=== PATIENT | male | born 1945 | race Caucasian/White ===

== ENCOUNTER 2018-01-16 18:32 | Observation (INO) ==
--- NOTE | 2018-01-16 18:51 | Emergency Department Note ---
Disposition Clinical Impression: Chest pain Qualifiers: Chest pain type: unspecified Qualified Code(s): R07.9 - Chest pain, unspecified Disposition: Admitted As Inpatient Condition: Good [facility] Care Provider[facility] - Time of Disposition: 21:25 General Adult HPI - General Chief complaint: ED Chest Pain Stated complaint: chest pain Time Seen by Provider: 01/16/18 18:33 Source: patient Nursing Notes Reviewed: Yes Vital Signs Reviewed: Yes - History of Present Illness HPI Narrative: Male patient presenting to the emergency department complaining of left-sided chest pain. States that it is sharp in nature radiates to his back. Denies any shortness of breath. Denies any nausea vomiting or diarrhea. Has never had a history of an [place] previously. He does have a history however of diabetes as well as hyperlipidemia and he was a previous smoker. Patient is resting comfortably he does have an episode of this pain while he is in the room. This is bleeding. This is happened several times throughout the day today he denies any provoking or alleviating factors. - Related Data Home Medications Medication Instructions Recorded Confirmed Albuterol Sulfate [Albuterol 2 puff PO Q4H PRN 07/10/15 07/10/15 Inhaler] Alfuzosin HCl [Uroxatral] 10 mg PO DAILY 07/10/15 07/10/15 Aspirin Enteric Coated [Aspirin EC] 81 mg PO DAILY 07/10/15 07/10/15 Budesonide/Formoterol 160/4.5 2 puff IH BIDR 07/10/15 07/10/15 [Symbicort 160/4.5] Cetirizine HCl [Zyrtec] 10 mg PO DAILY 07/10/15 07/10/15 Cholecalciferol (D-3) [Vitamin D] 1,000 unit PO DAILY 07/10/15 07/10/15 Fluticasone Propionate Nasal 2 spr NS DAILY PRN 07/10/15 07/10/15 [Flonase] Gabapentin [Neurontin] 600 mg PO TID 07/10/15 07/10/15 Hydralazine HCl 50 mg PO TID 07/10/15 07/10/15 Insulin ASPART [NovoLOG] 10 unit SQ QAM 07/10/15 07/10/15 Insulin ASPART [Novolog] 16 unit SQ BID 07/10/15 07/10/15 Insulin Glargine,Hum.rec.anlog 50 unit SQ HS 07/10/15 07/10/15 [Lantus Solostar] Latanoprost [Xalatan] 1 drop BOTH EYES QPM 07/10/15 07/10/15 Levothyroxine [Synthroid] 150 mcg PO DAILY 07/10/15 07/10/15 Losartan Potassium [Cozaar] 50 mg PO BID 07/10/15 07/10/15 Melatonin 3 mg PO HS 07/10/15 07/10/15 Metformin HCl [Metformin HCl ER] 2,000 mg PO QPM 07/10/15 07/10/15 Methocarbamol [Robaxin-750] 750 mg PO TID 07/10/15 07/10/15 Montelukast [Singulair] 10 mg PO 07/10/15 07/10/15 Morphine Immed Rel [Morphine 15 mg PO TID 07/10/15 07/10/15 Sulfate] Naproxen [Naprosyn] 500 mg PO BID 07/10/15 07/10/15 Omeprazole [PriLOSEC] 20 mg PO DAILY 07/10/15 07/10/15 Potassium Chloride [K-Tab ER] 20 meq PO BID 07/10/15 07/10/15 Ropinirole HCl [Requip] 3 mg PO 07/10/15 07/10/15 Sertraline [Zoloft] 200 mg PO DAILY 07/10/15 07/10/15 Simvastatin [Zocor] 20 mg PO 07/10/15 07/10/15 hydroCHLOROthiazide 12.5 mg PO DAILY 07/10/15 07/10/15 [Hydrochlorothiazide] risperiDONE [Risperidone] 0.5 mg PO 07/10/15 07/10/15 risperiDONE [Risperidone] 1 mg PO QA 07/10/15 07/10/15 Allergies Allergy/AdvReac Type Severity Reaction Status Date / Time citalopram [From Celexa] AdvReac aggitated Verified 07/10/15 08:14 Donepezil [From Aricept] AdvReac unknown Verified 07/10/15 08:14 per patient All systems ED: reviewed and negative except as stated. Review of Systems: As Per HPI Constitutional: Denies: fever ENT ED: Denies: congestion Cardiovascular: Reports: chest pain. Denies: palpitations, syncope Respiratory: Denies: cough, dyspnea Gastrointestinal: Denies: abdominal pain, nausea, vomiting, diarrhea, hematemesis, melena, hematochezia Genitourinary: Denies: urgency, dysuria, frequency Musculoskeletal: Denies: back pain Integumentary: Denies: rash Neurological: Denies: headache, weakness, numbness Past Medical History - Past Medical History Attestation: Yes The following information was validated with the patient. Source: patient Medical history: Reports: asthma, diabetes, hyperlipidemia, hypertension, thyroid disease Surgical history: Reports: orthopedic, other Psychiatric history: Reports: depression - Social History Smoking Status: Former smoker Alcohol use: Reports: none Physical Exam - General Limitations: no limitations General appearance: obese - Head Head exam: atraumatic, normocephalic, normal inspection - Eye Eye exam: Present: normal appearance - ENT ENT exam: normal exam, normal oropharynx, mucous membranes moist - Neck Neck exam: Present: normal inspection, full ROM, trachea midline - Chest Chest inspection: Present: normal inspection, symmetric chest wall rise. Absent: tenderness - Respiratory Respiratory exam: Present: normal lung sounds bilaterally. Absent: respiratory distress, accessory muscle use - Cardiovascular Cardiovascular exam: Present: regular rate, normal rhythm, normal heart sounds - Abdominal Exam Abdominal exam: Present: soft, Non-Tender. Absent: tenderness, distention, g uarding, rebound, rigidity, organomegaly - Extremities Exam Extremities exam: Present: normal inspection, full ROM, normal capillary refill. Absent: tenderness, pedal edema - Back Exam Back exam: Present: normal inspection, full ROM. Absent: tenderness - Neurological Exam Neurological exam: Present: alert, oriented X3 - Psychiatric Psychiatric exam: Present: normal affect, normal mood - Skin Skin exam: Present: warm, dry, intact, normal color Course Course Narrative: Male patient with a significant past medical history of being a smoker as well as diabetes hyperlipidemia hypercholesterolemia presents with left-sided chest pain. He is an obese male. Patient has poor R-wave progression on his EKG. He also has a first-degree AV block. Lab workup is unremarkable a is here however he does have chest pain while he is here. We had a negative troponin initially however we will admit patient to hospital for further ACS rule out. We did provide him with aspirin while he is here. Vital Signs Temperature 98.5 F 01/16/18 18:46 Pulse Rate 60 01/16/18 18:46 Respiratory Rate 16 01/16/18 18:46 Blood Pressure 154/59 01/16/18 18:46 O2 Sat by Pulse Oximetry 95 01/16/18 18:46 Temperature 98.5 F 01/16/18 18:46 Pulse Rate 60 01/16/18 18:46 Respiratory Rate 16 01/16/18 18:46 Blood Pressure 154/59 01/16/18 18:46 O2 Sat by Pulse Oximetry 95 01/16/18 18:46 Oxygen Delivery Oxygen Delivery Room Air Medical Decision Making - Medical Records Medical records reviewed: Yes I reviewed the patient's medical records. - Lab Data Lab results reviewed: Yes I reviewed the patient's lab results. Result diagrams: 01/16/18 19:40 01/16/18 19:40 Lab Results 01/16/18 01/16/18 01/16/18 Range/Units 19:40 19:40 19:40 WBC 7.0 (4.3-11.1) K/mcL RBC 3.93 L (4.19-5.50) M/mcL Hgb 10.6 L (12.9-16.9) g/dL Hct 32.6 L (37.5-50.1) % MCV 83.0 (83.0-100.0) fL MCH 27.0 L (28.0-33.3) pg MCHC 32.5 (31.6-35.5) g/dL RDW 14.0 (11.5-14.5) % Plt Count 168 (140-400) K/mcL MPV 10.8 (9.4-12.4) fL Immature Gran % 0.6 (0-4) % Seg Neutrophils % 68.0 % Lymphocytes % 18.4 % Monocytes % 7.1 % Eosinophils % 5.3 % Basophils % 0.6 % Neutrophils # 4.7 (1.6-8.9) K/mcL Lymphocytes # 1.3 (0.6-4.6) K/mcL Monocytes # 0.5 (0.0-1.3) K/mcL Eosinophils # 0.4 (0.0-0.6) K/mcL Basophils # 0.0 (0.0-0.2) K/mcL PT 11.4 (9.4-12.1) Seconds INR 1.0 APTT 33.7 (26.0-36.0) Seconds Sodium (136-145) mEq/L Potassium (3.5-5.1) mEq/L Chloride (98-107) mEq/L Carbon Dioxide (23-29) mEq/L BUN (8-23) mg/dL Creatinine (0.70-1.30) mg/dL Est GFR ( Amer) (> 60) Est GFR (Non-Af Amer) (> 60) BUN/Creatinine Ratio (6-26) Glucose (70-105) mg/dL Calculated Osmolality (280-300) Calcium (8.6-10.3) mg/dL Troponin I (< 0.04) ng/mL B-Natriuretic Peptide 98 (Less than 100) pg/mL 01/16/18 Range/Units 19:40 WBC (4.3-11.1) K/mcL RBC (4.19-5.50) M/mcL Hgb (12.9-16.9) g/dL Hct (37.5-50.1) % MCV (83.0-100.0) fL MCH (28.0-33.3) pg MCHC (31.6-35.5) g/dL RDW (11.5-14.5) % Plt Count (140-400) K/mcL MPV (9.4-12.4) fL Immature Gran % (0-4) % Seg Neutrophils % % Lymphocytes % % Monocytes % % Eosinophils % % Basophils % % Neutrophils # (1.6-8.9) K/mcL Lymphocytes # (0.6-4.6) K/mcL Monocytes # (0.0-1.3) K/mcL Eosinophils # (0.0-0.6) K/mcL Basophils # (0.0-0.2) K/mcL PT (9.4-12.1) Seconds INR APTT (26.0-36.0) Seconds Sodium 138 (136-145) mEq/L Potassium 3.5 (3.5-5.1) mEq/L Chloride 103 (98-107) mEq/L Carbon Dioxide 26 (23-29) mEq/L BUN 17 (8-23) mg/dL Creatinine 0.93 (0.70-1.30) mg/dL Est GFR ( Amer) > 60 (> 60) Est GFR (Non-Af Amer) > 60 (> 60) BUN/Creatinine Ratio 18 (6-26) Glucose 253 H (70-105) mg/dL Calculated Osmolality 296 (280-300) Calcium 9.0 (8.6-10.3) mg/dL Troponin I < 0.03 (< 0.04) ng/mL B-Natriuretic Peptide (Less than 100) pg/mL - Radiology Data Radiology results reviewed: Yes I reviewed the patient's radiology results. Chest X-Ray 01/16/18 19:03 IMPRESSION: The lungs are without acute focal process. There is no effusion or pneumothorax. The cardiomediastinal silhouette is stable. The osseous structures are stable. IMPRESSION: No acute process. D/ / García Arellano MD / García Arellano MD Interpreting Provider: García Arellano MD - EKG Data EKG #1 EKG attestation: Yes I reviewed and interpreted this EKG. EKG results narrative: Sinus bradycardia rhythm at a rate of 59. IL interval is 287. QRS duration is 104. QT is 435. QTC is 431. Patient does have a first-degree AV block. Poor R-wave progression. No signs of acute ischemia.
[2018-01-16] MEDS ORDERED: Aspirin 81 MG TAB.CHEW PO ONE (19:03)
[2018-01-16 20:10] LABS: Basophils % 0.6 %; Eosinophils # 0.4 K/mcL (0.0-0.6); Eosinophils % 5.3 %; Hematocrit 32.6 % (37.5-50.1); Hemoglobin 10.6 g/dL (12.9-16.9); Immature Granulocytes % 0.6 % (0-4); Lymphocytes # 1.3 K/mcL (0.6-4.6); Lymphocytes % 18.4 %; Mean Corpuscular HGB Conc 32.5 g/dL (31.6-35.5); Mean Platelet Volume 10.8 fL (9.4-12.4); Monocytes # 0.5 K/mcL (0.0-1.3); Monocytes % 7.1 %; Neutrophils # 4.7 K/mcL (1.6-8.9); Platelet Count 168 K/mcL (140-400); Red Blood Count 3.93 M/mcL (4.19-5.50)
[2018-01-16 20:23] LABS: Prothrombin Time 11.4 Seconds (9.4-12.1)
[2018-01-16 20:25] LABS: Activated Partial Thrombo Time 33.7 Seconds (26.0-36.0)
[2018-01-16 20:31] LABS: BUN/Creatinine Ratio 18 (6-26); Blood Urea Nitrogen 17 mg/dL (8-23); Carbon Dioxide 26 mEq/L (23-29); Chloride 103 mEq/L (98-107); Glucose 253 mg/dL (70-105); Osmolality,Calculated 296 (280-300); Potassium 3.5 mEq/L (3.5-5.1); Sodium 138 mEq/L (136-145); Troponin I < 0.03 ng/mL (< 0.04); eGFR For Non-African Americans > 60 (> 60)
--- NOTE | 2018-01-16 21:06 | Emergency Department Note ---
Disposition Clinical Impression: Chest pain Qualifiers: Chest pain type: unspecified Qualified Code(s): R07.9 - Chest pain, unspecified Disposition: Admitted As Inpatient [facility]: [facility] [Primary Care Provider[facility] - General Adult [facility] - General Chief complaint: ED Chest Pain Stated complaint: chest pain Time Seen by Provider: 01/16/18 18:33 Source: patient Limitations: no limitations - History of Present Illness Pain Scale: 0 - Related Data Home Medications Medication Instructions Recorded Confirmed Albuterol Sulfate [Albuterol 2 puff PO Q4H PRN 07/10/15 07/10/15 Inhaler] Alfuzosin HCl [Uroxatral] 10 mg PO DAILY 07/10/15 07/10/15 Aspirin Enteric Coated [Aspirin EC] 81 mg PO DAILY 07/10/15 07/10/15 Budesonide/Formoterol 160/4.5 2 puff IH BIDR 07/10/15 07/10/15 [Symbicort 160/4.5] Cetirizine HCl [Zyrtec] 10 mg PO DAILY 07/10/15 07/10/15 Cholecalciferol (D-3) [Vitamin D] 1,000 unit PO DAILY 07/10/15 07/10/15 Fluticasone Propionate Nasal 2 spr NS DAILY PRN 07/10/15 07/10/15 [Flonase] Gabapentin [Neurontin] 600 mg PO TID 07/10/15 07/10/15 Hydralazine HCl 50 mg PO TID 07/10/15 07/10/15 Insulin ASPART [NovoLOG] 10 unit SQ QAM 07/10/15 07/10/15 Insulin ASPART [Novolog] 16 unit SQ BID 07/10/15 07/10/15 Insulin Glargine,Hum.rec.anlog 50 unit SQ HS 07/10/15 07/10/15 [Lantus Solostar] Latanoprost [Xalatan] 1 drop BOTH EYES QPM 07/10/15 07/10/15 Levothyroxine [Synthroid] 150 mcg PO DAILY 07/10/15 07/10/15 Losartan Potassium [Cozaar] 50 mg PO BID 07/10/15 07/10/15 Melatonin 3 mg PO HS 07/10/15 07/10/15 Metformin HCl [Metformin HCl ER] 2,000 mg PO QPM 07/10/15 07/10/15 Methocarbamol [Robaxin-750] 750 mg PO TID 07/10/15 07/10/15 Montelukast [Singulair] 10 mg PO HS 07/10/15 07/10/15 Morphine Immed Rel [Morphine 15 mg PO TID 07/10/15 07/10/15 Sulfate] Naproxen [Naprosyn] 500 mg PO BID 07/10/15 07/10/15 Omeprazole [PriLOSEC] 20 mg PO DAILY 07/10/15 07/10/15 Potassium Chloride [K-Tab ER] 20 meq PO BID 07/10/15 07/10/15 Ropinirole HCl [Requip] 3 mg PO HS 07/10/15 07/10/15 Sertraline [Zoloft] 200 mg PO DAILY 07/10/15 07/10/15 Simvastatin [Zocor] 20 mg PO HS 07/10/15 07/10/15 hydroCHLOROthiazide 12.5 mg PO DAILY 07/10/15 07/10/15 [Hydrochlorothiazide] risperiDONE [Risperidone] 0.5 mg PO HS 07/10/15 07/10/15 risperiDONE [Risperidone] 1 mg PO QA 07/10/15 07/10/15 Allergies Allergy/AdvReac Type Severity Reaction Status Date / Time citalopram [From Celexa] AdvReac aggitated Verified 07/10/15 08:14 Donepezil [From Aricept] AdvReac unknown Verified 07/10/15 08:14 per patient Past Medical History - Past Medical History Medical history: Reports: asthma, diabetes, hyperlipidemia, hypertension, thyroid disease Surgical history: Reports: orthopedic, other Psychiatric history: Reports: depression - Social History Smoking Status: Former smoker Smokeless Tobacco Status: No Alcohol use: Reports: none Physical Exam - General Limitations: no limitations General appearance: alert, in no apparent distress Course Vital Signs Temperature 98.5 F 01/16/18 18:46 Pulse Rate 60 01/16/18 18:46 Respiratory Rate 16 01/16/18 18:46 Blood Pressure 154/59 01/16/18 18:46 O2 Sat by Pulse Oximetry 95 01/16/18 18:46 Temperature 98.5 F 01/16/18 18:46 Pulse Rate 60 01/16/18 18:46 Respiratory Rate 16 01/16/18 18:46 Blood Pressure 154/59 01/16/18 18:46 O2 Sat by Pulse Oximetry 95 01/16/18 18:46 Oxygen Delivery Oxygen Delivery Room Air Medical Decision Making - Lab Data Result diagrams: 01/16/18 19:40 01/16/18 19:40 Lab Results 01/16/18 01/16/18 01/16/18 Range/Units 19:40 19:40 19:40 WBC 7.0 (4.3-11.1) K/mcL RBC 3.93 L (4.19-5.50) M/mcL Hgb 10.6 L (12.9-16.9) g/dL Hct 32.6 L (37.5-50.1) % MCV 83.0 (83.0-100.0) fL MCH 27.0 L (28.0-33.3) pg MCHC 32.5 (31.6-35.5) g/dL RDW 14.0 (11.5-14.5) % Plt Count 168 (140-400) K/mcL MPV 10.8 (9.4-12.4) fL Immature Gran % 0.6 (0-4) % Seg Neutrophils % 68.0 % Lymphocytes % 18.4 % Monocytes % 7.1 % Eosinophils % 5.3 % Basophils % 0.6 % Neutrophils # 4.7 (1.6-8.9) K/mcL Lymphocytes # 1.3 (0.6-4.6) K/mcL Monocytes # 0.5 (0.0-1.3) K/mcL Eosinophils # 0.4 (0.0-0.6) K/mcL Basophils # 0.0 (0.0-0.2) K/mcL PT 11.4 (9.4-12.1) Seconds INR 1.0 APTT 33.7 (26.0-36.0) Seconds Sodium (136-145) mEq/L Potassium (3.5-5.1) mEq/L Chloride (98-107) mEq/L Carbon Dioxide (23-29) mEq/L BUN (8-23) mg/dL Creatinine (0.70-1.30) mg/dL Est GFR ( Amer) (> 60) Est GFR (Non-Af Amer) (> 60) BUN/Creatinine Ratio (6-26) Glucose (70-105) mg/dL Calculated Osmolality (280-300) Calcium (8.6-10.3) mg/dL Troponin I (< 0.04) ng/mL B-Natriuretic Peptide 98 (Less than 100) pg/mL 01/16/18 Range/Units 19:40 WBC (4.3-11.1) K/mcL RBC (4.19-5.50) M/mcL Hgb (12.9-16.9) g/dL Hct (37.5-50.1) % MCV (83.0-100.0) fL MCH (28.0-33.3) pg MCHC (31.6-35.5) g/dL RDW (11.5-14.5) % Plt Count (140-400) K/mcL MPV (9.4-12.4) fL Immature Gran % (0-4) % Seg Neutrophils % % Lymphocytes % % Monocytes % % Eosinophils % % Basophils % % Neutrophils # (1.6-8.9) K/mcL Lymphocytes # (0.6-4.6) K/mcL Monocytes # (0.0-1.3) K/mcL Eosinophils # (0.0-0.6) K/mcL Basophils # (0.0-0.2) K/mcL PT (9.4-12.1) Seconds INR APTT (26.0-36.0) Seconds Sodium 138 (136-145) mEq/L Potassium 3.5 (3.5-5.1) mEq/L Chloride 103 (98-107) mEq/L Carbon Dioxide 26 (23-29) mEq/L BUN 17 (8-23) mg/dL Creatinine 0.93 (0.70-1.30) mg/dL Est GFR ( Amer) > 60 (> 60) Est GFR (Non-Af Amer) > 60 (> 60) BUN/Creatinine Ratio 18 (6-26) Glucose 253 H (70-105) mg/dL Calculated Osmolality 296 (280-300) Calcium 9.0 (8.6-10.3) mg/dL Troponin I < 0.03 (< 0.04) ng/mL B-Natriuretic Peptide (Less than 100) pg/mL Attestation Statement - Attestation Attestation: I examined this patient and my medical decision-making was reviewed with the Resident Physician. I agree with the documented findings, disposition and treatment plan as described except to the extent set forth below. 72 year old male presents to the ED with complaints of chest pain and has mutiple risk factors in addition being bradycardiac at [facility]. We will admit to medicinef or CP r/o ACS
[2018-01-16] MEDS ORDERED: D5% in Water 1,000 ML IVC PRN (23:35)
[2018-01-16] MEDS ORDERED: Dextrose Gel 15 GM/37.5 ML TUBE PO PRN ×2 (23:35)
[2018-01-16] MEDS ORDERED: *HR* Dextrose 50 % in Water (Syg) 50 ML SYRINGE IVP PRN (23:35)
[2018-01-17] MEDS: Insulin LISPRO 300 UNITS/3 ML VIAL SQ SCH ×5 (00:08→20:10)
[2018-01-17] MEDS ORDERED: Nitroglycerin 0.4 MG TAB.SUBL SL ONE (00:08)
[2018-01-17 00:17] LABS: Thyroid Stimulating Hormone 2.236 mcIU/mL (0.340-5.600)
[2018-01-17] MEDS ORDERED: Acetaminophen 325 MG TABLET PO PRN (00:24)
[2018-01-17] MEDS ORDERED: Naloxone 0.4 MG/ML INJ IVP PRN (00:25)
[2018-01-17] MEDS: *HR* Morphine Soln 10 MG/5 ML UDC PO PRN ×2 (00:52→20:09)
--- NOTE | 2018-01-17 00:57 | Internal Med History&Physical ---
Date of Encounter: 01/17/18 Time of Encounter: 23:30 Internal Medicine - H&P: HPI Chief complaint: CP Admitted From: Emergency Dept Plans for Post Hospital Care: Home History of present illness: Mr. Robert is a 72 year old male w/PMH of asthma, diabetes, HLD, HTN, GERD, thyroid disease, anemia, and depression presents from the ED w/CC of CP that began approximately at 16:30 this afternoon. Pt. states that the sx came on at rest and presented as sharp, stabbing pain in his left breast above the nipple and was intermittent. No alleviating or aggravating factors. Pt. states last time this occurred was 4-5 years ago. 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 No stents. Pt. denies radiation to other parts of his body, nausea, vomiting, diaphoresis but reports shortness of breath with symptoms. Reports mother of a massive heart attack at the age of 62. Risk factors include HTN, HLD, and diabetes. Patient denies recent illness, fever, chills, nausea, vomiting, headache, cough, chest congestion, changes in vision, unusual bleeding, abdominal pain, diarrhea, constipation, dizziness, lightheadedness, numbness, tingling, pre-syncope, or syncope. Past Med Surg Social Fam HX - Past Medical History Source: patient, old records reviewed Medical history: asthma, diabetes, GERD, hyperlipidemia, hypertension, thyroid disease Psychiatric history: depression - Past Surgical History Surgical History: orthopedic, other Additional surgical history: steroid shots to knees - Social History Smoking Status: Former smoker Packs per day: < 1 PPD. Reports quitting in late 1960s. Smokeless Tobacco Status: No Alcohol use: none Drug use: none Current living situation: Home Activity Level: Independent ambulation Recent Out of Country Travel Within the Last 8 Weeks: No Exposure or Possible Exposure to Illness During Travel: No - Family History Mother Race: Family Member Ethnicity: Non- Living Status: Age at : 62 Cause of : [place] Hx Family Cardiac Disorders: Yes (VT, CAD) Father Race: Family Member Ethnicity: Non- Living Status: Age at : 60 Cause of : Carbon monoxide poisoning Brother Race: Family Member Ethnicity: Non- Living Status: Age at : 19 Cause of : in [place] Internal Medicine - H&P: Meds Albuterol Sulfate [Albuterol Inhaler] 2 puff PO Q4H PRN 07/10/15 [History] Alfuzosin HCl [Uroxatral] 10 mg PO DAILY 07/10/15 [History] Aspirin Enteric Coated [Aspirin EC] 81 mg PO DAILY 07/10/15 [History] Budesonide/Formoterol 160/4.5 [Symbicort 160/4.5] 2 puff IH BIDR 07/10/15 [History] Cetirizine HCl [Zyrtec] 10 mg PO DAILY 07/10/15 [History] Cholecalciferol (D-3) [Vitamin D] 1,000 unit PO DAILY 07/10/15 [History] Fluticasone Propionate Nasal [Flonase] 2 spr NS DAILY PRN 07/10/15 [History] Gabapentin [Neurontin] 600 mg PO TID 07/10/15 [History] Hydralazine HCl 50 mg PO TID 07/10/15 [History] Insulin ASPART [NovoLOG] 10 unit SQ QAM 07/10/15 [History] Insulin ASPART [Novolog] 16 unit SQ BID 07/10/15 [History] Insulin Glargine,Hum.rec.anlog [Lantus Solostar] 50 unit SQ HS 07/10/15 [History] Latanoprost [Xalatan] 1 drop BOTH EYES QPM 07/10/15 [History] Levothyroxine [Synthroid] 150 mcg PO DAILY 07/10/15 [History] Losartan Potassium [Cozaar] 50 mg PO BID 07/10/15 [History] Melatonin 3 mg PO HS 07/10/15 [History] Metformin HCl [Metformin HCl ER] 2,000 mg PO QPM 07/10/15 [History] Methocarbamol [Robaxin-750] 750 mg PO TID 07/10/15 [History] Montelukast [Singulair] 10 mg PO HS 07/10/15 [History] Morphine Immed Rel [Morphine Sulfate] 15 mg PO TID 07/10/15 [History] Naproxen [Naprosyn] 500 mg PO BID 07/10/15 [History] Omeprazole [PriLOSEC] 20 mg PO DAILY 07/10/15 [History] Potassium Chloride [K-Tab ER] 20 meq PO BID 07/10/15 [History] Ropinirole HCl [Requip] 3 mg PO HS 07/10/15 [History] Sertraline [Zoloft] 200 mg PO DAILY 07/10/15 [History] Simvastatin [Zocor] 20 mg PO HS 07/10/15 [History] hydroCHLOROthiazide [Hydrochlorothiazide] 12.5 mg PO DAILY 07/10/15 [History] risperiDONE [Risperidone] 0.5 mg PO HS 07/10/15 [History] risperiDONE [Risperidone] 1 mg PO QAM 07/10/15 [History] Allergy/AdvReac Type Severity Reaction Status Date / Time citalopram [From Celexa] AdvReac aggitated Verified 07/10/15 08:14 Donepezil [From Aricept] AdvReac unknown Verified 07/10/15 08:14 per patient All Systems PM: A 10-system review of systems was performed and is negative for pertinent findings except as documented above in the HPI. - Constitutional Constitutional: no chills, no fever(s), no night sweats - EENT Eyes: no change in vision, no discharge, no pain, no photophobia Ears: no ear discharge, no ear pain, no tinnitus Nose, mouth and throat: no dysphagia, no nasal discharge, no neck pain, no sore throat - Breasts Breasts: as per HPI - Cardiovascular Cardiovascular ROS IM: as per HPI, chest pain, dyspnea, dyspnea on exertion, edema, irregular heart rhythm (Bradycardia), no diaphoresis, no lightheadedness, no palpitations, no syncope - Respiratory Respiratory: as per HPI, dyspnea, dyspnea on exertion, no cough, no wheezing, no excessive phlegm production - Gastrointestinal Gastrointestinal: no abdominal pain, no diarrhea, no hematemesis, no hematochezia, no melena, no nausea, no vomiting - Genitourinary Genitourinary ROS male: as per HPI - Musculoskeletal Musculoskeletal ROS IM: no numbness, no tingling - Integumentary Integumentary IM: no rash, no unusual bruising - Neurological Neurological ROS: no confusion, no convulsions, no focal weakness, no numbness, no tingling, no tremor(s) - Psychiatric Psychiatric: as per HPI, depression - Endocrine Endocrine IM: as per HPI - Hematologic/Lymphatic Hematologic/Lymphatic: no easy bruising - Allergic/Immunologic Allergic/Immunologic: as per HPI - Constitutional Vitals: Temp Pulse Resp BP Pulse Ox 98.0 F 58 16 148/75 98 01/16/18 22:24 01/16/18 22:24 01/17/18 00:09 01/16/18 22:24 01/17/18 00:09 General appearance: Present: cooperative, mild distress (CP), A&O X 3, morbidly obese, pleasant, answers questions appropriately Exam: Patient examined at bedside. Pt. was resting comfortably w/no CP and during assessment had a sharp pain in left breast that took his breath away. Pain subs ided. No N/V/diaphoresis. Pt. denies any other complaints or sx at this time. VS: 98.0F temp, HR 58, RR 16, 148/75, SpO2 94% on RA. - Head Head exam: Present: atraumatic, normocephalic - Eye Eye exam: Present: PERRL, conjuntiva pink, sclera anicteric Pupils: Present: PERRL - ENT ENT exam: Present: normal exam - Neck Neck exam general surgery: Present: normal inspection, supple, trachea midline. Absent: lymphadenopathy - Respiratory Respiratory exam: Present: CTAB. Absent: accessory muscle use, rales, rhonchi, wheezes - Cardiovascular Cardiovascular exam: Present: bradycardia, +S1, +S2. Absent: diastolic murmur, gallop, rubs, systolic murmur - GI/Abdominal GI/Abdominal exam: Present: normal bowel sounds, soft, no peritoneal signs. Absent: distended, tenderness - Rectal Rectal exam: Present: deferred - Additional comments: exam deferred. - Extremities Exam Extremities exam: Present: pedal edema, warm, radial pulses palpable and symmetrical. Absent: calf tenderness, cyanotic - Back Exam Back exam: Present: normal inspection - Neurological Exam Neurological exam: Present: alert, CN II-XII intact, oriented X3, no focal deficits. Absent: pronater drift, facial droop, speech deficit - Psychiatric Psychiatric exam: Present: normal affect, normal mood - Skin Skin exam: Present: dry, intact Internal Med - H&P Results - Labs CBC & Chem 7: 01/17/18 01:18 01/17/18 01:18 Labs: Short CBC 01/16/18 Range/Units 19:40 WBC 7.0 (4.3-11.1) K/mcL Hgb 10.6 L (12.9-16.9) g/dL Hct 32.6 L (37.5-50.1) % Plt Count 168 (140-400) K/mcL Neutrophils # 4.7 (1.6-8.9) K/mcL BMP 01/16/18 19:40 Sodium 138 Potassium 3.5 Chloride 103 Carbon Dioxide 26 BUN 17 Creatinine 0.93 Glucose 253 H Calcium 9.0 Cardiac Enzymes 01/16/18 Range/Units 19:40 Troponin I < 0.03 (< 0.04) ng/mL - EKG Data EKG shows normal: sinus rhythm - EKG Data Prior EKG available for review: yes EKG comments: 01/17/18 01:07 EKG dated 01/16/18 18:52 shows sinus rhythm with prolonged OH interval and probable anteroseptal infarct, probably old. EKG dated 01/17/18 shows sinus bradycardia with first-degree AV block and moderate intraventricular conduction delay. - Impressions ITS Impressions Chest X-Ray 01/16/18 19:03 IMPRESSION: The lungs are without acute focal process. There is no effusion or pneumothorax. The cardiomediastinal silhouette is stable. The osseous structures are stable. IMPRESSION: No acute process. D/ / García Arellano MD / García Arellano MD Interpreting Provider: García Arellano MD - Diagnostic Studies Chest x-ray Additional comments: Impressions Chest X-Ray 01/16/18 19:03 IMPRESSION: The lungs are without acute focal process. There is no effusion or pneumothorax. The cardiomediastinal silhouette is stable. The osseous structures are stable. IMPRESSION: No acute process. D/ / García Arellano MD / García Arellano MD Interpreting Provider: García Arellano MD - Assessment and plan (1) Chest pain Current Visit: Yes Status: Acute Assessment and plan: Acute CP that began approximately at 16:30 this afternoon. Pt. states that the sx came on at rest and presented as sharp, stabbing pain in his left breast above the nipple and was intermittent. No alleviating or aggravating factors. Pt. states last time this occurred was 4-5 years ago. 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 No stents. Pt. denies radiation to other parts of his body, nausea, vomiting, diaphoresis but reports shortness of breath with symptoms. Reports mother of a massive heart attack at the age of 64. Risk factors include HTN, HLD, and diabetes. Initial troponin <0.03. Second troponin <0.03. Will continue to trend. ASA. 80 mg Lipitor once to be followed by 20 mg Zocor tomorrow HS. IVP hydralazine w/parameters for HTN. Echocardiogram ordered. NPO at midnight for a.m. nuclear Pharm stress test if troponins remain WNL. Consider adding Cardiology consult if troponins, Echocardiogram, and/or stress test results abnormal. Pt. is high risk for further morbidity and cardiac event d/t current CP at rest, familial hx of CAD and VT (mother of a massive VT), current sleep apnea; and risk factors of DM, HTN, HLD, and morbid obesity. Observation. Qualifiers: Chest pain type: other chest pain Qualified Code(s): R07.89 - Other chest pain; R07.8 - Other chest pain (2) SOB (shortness of breath) Current Visit: Yes Status: Acute Assessment and plan: Acute SOB associated w/current CP sx. Pt. reports CPAP at night. Supplemental O2 w/titration and SpO2 monitoring. Pt. denies hx of COPD but did smoke <1 PPD until the late . Hx of asthma. Will monitor pts. respiratory status closely. (3) Asthma Current Visit: Yes Status: Chronic Assessment and plan: Hx of chronic asthma that is mild and intermittent. Will continue pts. inhalers once verified in the a.m. Qualifiers: Asthma severity: mild Asthma persistence: intermittent Asthma complication type: uncomplicated Qualified Code(s): J45.20 - Mild intermittent asthma, uncomplicated (4) Diabetes Current Visit: Yes Status: Chronic Assessment and plan: Hx of chronic diabetes. Will administer medium dose correction sliding scale insulin w/hypoglycemic protocol. BG checks ACHS. A1c in a.m. labs. Qualifiers: Diabetes mellitus type: type 2 Diabetes mellitus long term care pharmacist insulin use: unspecified long term care pharmacist insulin use status Diabetes mellitus complication status: with unspecified complications Qualified Code(s): E11.8 - Type 2 diabetes mellitus with unspecified complications (5) HLD (hyperlipidemia) Current Visit: Yes Status: Chronic Assessment and plan: Hx of chronic HLD. Lipid panel in a.m. labs. 80 mg PO Lipitor given once. Will follow w/pts. daily HS Zocor starting tomorrow once medications are reconciled. Qualifiers: Hyperlipidemia type: pure hypercholesterolemia Qualified Code(s): E78.00 - Pure hypercholesterolemia, unspecified; E78.0 - Pure hypercholesterolemia (6) HTN (hypertension) Current Visit: Yes Status: Chronic Assessment and plan: Hx of chronic HTN. Monitor pt. and VS. Medications not reconciled overnight, so IVP hydralazine 10 mg Q6HR PRN w/parameters ordered. Qualifiers: Hypertension type: essential hypertension Qualified Code(s): I10 - Essential (primary) hypertension (7) Thyroid disease Current Visit: Yes Status: Chronic Assessment and plan: Hx of chronic thyroid disease. TSH 2.236 on admission. Will continue pts. Synt hroid once medications are reconciled. (8) Anemia Current Visit: Yes Status: Chronic Assessment and plan: Hx of anemia of unknown etiology. Hgb 10.6 and Hct 32.6 on admission today. Pt. denies unusual bleeding. Will monitor f/u labs. Qualifiers: Anemia type: unspecified type Qualified Code(s): D64.9 - Anemia, unspecified (9) Sleep apnea in adult Current Visit: Yes Status: Chronic Assessment and plan: Hx of chronic sleep apnea. Pt. denies regular home O2 use. Reports CPAP HS. Respiratory Therapy consult and CPAP ordered HS. (10) DVT prophylaxis Current Visit: Yes Status: Acute Assessment and plan: SQ heparin 5,000 units Q8HR for DVT prophylaxis. Monitor pt. for signs of bleeding. - Time Spent With Patient Total time spent is greater than 50% in coordination of care (as documented) at patient's floor/unit and/or counseling patient: Greater than 35 minutes
[2018-01-17 01:29] LABS: Basophils % 0.6 %; Eosinophils # 0.3 K/mcL (0.0-0.6); Eosinophils % 5.3 %; Hemoglobin 10.3 g/dL (12.9-16.9); Immature Granulocytes % 0.3 % (0-4); Lymphocytes # 1.5 K/mcL (0.6-4.6); Lymphocytes % 22.7 %; Mean Corpuscular HGB Conc 32.2 g/dL (31.6-35.5); Mean Corpuscular Hemoglobin 26.6 pg (28.0-33.3); Mean Corpuscular Volume 82.7 fL (83.0-100.0); Mean Platelet Volume 10.7 fL (9.4-12.4); Monocytes # 0.5 K/mcL (0.0-1.3); Monocytes % 7.9 %; Neutrophils # 4.1 K/mcL (1.6-8.9); Platelet Count 172 K/mcL (140-400); Red Blood Count 3.87 M/mcL (4.19-5.50); Red Cell Distribution Width 14.1 % (11.5-14.5); Segmented Neutrophils % 63.2 %
[2018-01-17 01:51] LABS: Alanine Aminotransferase 20 Units/L (7-52); Albumin 3.9 g/dL (3.5-5.7); Albumin/Globulin Ratio 1.6 (1.1-2.2); Alkaline Phosphatase 67 Units/L (34-104); Aspartate Amino Transferase 20 Units/L (13-39); BUN/Creatinine Ratio 17 (6-26); Bilirubin,Total 0.2 mg/dL (0.3-1.0); Blood Urea Nitrogen 18 mg/dL (8-23); Calcium 8.9 mg/dL (8.6-10.3); Carbon Dioxide 26 mEq/L (23-29); Chloride 105 mEq/L (98-107); Chol/HDL Ratio 4.9 (0-4.9); Cholesterol 127 mg/dL (< 200); Globulin 2.4 g/dL (2.4-3.5); Glucose 207 mg/dL (70-105); HDL Cholesterol 26 mg/dL (40-59); LDL Cholesterol,Calculated 38 mg/dL (0-99); Magnesium 1.9 mg/dL (1.6-2.6); Osmolality,Calculated 296 (280-300); Potassium 3.5 mEq/L (3.5-5.1); Sodium 139 mEq/L (136-145); Total Protein 6.3 g/dL (6.4-8.9); Triglycerides 316 mg/dL (< 150); eGFR For Non-African Americans > 60 (> 60)
[2018-01-17] MEDS: *HR* Heparin 5,000 UNIT/ML VIAL SQ SCH ×3 (04:54→20:07)
[2018-01-17] MEDS ORDERED: Regadenoson 0.4 MG/5 ML SYRINGE IVP ONE (05:43)
[2018-01-17 08:57] LABS: Estimated Average Glucose 137 mg/dl; Hemoglobin A1C 6.4 %
[2018-01-17] MEDS ORDERED: Aspirin Enteric Coated 81 MG Tablet PO SCH (09:00)
[2018-01-17] MEDS ORDERED: hydrALAZINE 25 MG TABLET PO SCH (11:41)
--- NOTE | 2018-01-17 12:55 | Electrocardiograph Report ---
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
[2018-01-17] MEDS: hydroCHLOROthiazide 25 MG TABLET PO SCH (13:05)
--- NOTE | 2018-01-17 14:12 | Internal Med Progress Note ---
Hospitalist Progress Note - Encounter Date of Encounter: 01/17/18 Time of Encounter: 14:07 - Subjective Interval History: Patient was seen and examined at bedside. He just came back from stress test. He denied anymore chest pain. - Exam Vitals: Temp Pulse Resp BP Pulse Ox 98.1 F 56 18 208/79 100 01/17/18 11:29 01/17/18 11:29 01/17/18 11:29 01/17/18 11:29 01/17/18 11:29 Exam: Gen: Alert, awake, Oriented to time,place and person Chest: Diminished breath sounds B/L, No wheezing, No crackles, No rales Heart: S1S2+ RRR No murmurs Abd: Soft, NT, BS +, No organomegaly Ext: No edema, pulses are palpable, No calf tenderness Neuro : Benign findings Skin: No rash. - Assessment and Plan (1) Chest pain Current Visit: Yes Status: Acute Assessment and Plan: So far negative troponin reviewed EKG showed sinus rhythm with first-degree AV block ,with nonspecific T wave abnormalities patient is high risk for ACS , so scheduled for nuclear stress test Due to his high BMI he does need 2 days stress test cont ASA, Statin, BB and Losartan (2) SOB (shortness of breath) Current Visit: Yes Status: Acute Assessment and Plan: seems to be chronic due to his JESUS denied any active SOB now Use CPAP QHS (3) Asthma Current Visit: Yes Status: Chronic Assessment and Plan: Hx of chronic asthma that is mild and intermittent resumed his home INH regimen (4) Diabetes Current Visit: Yes Status: Chronic Assessment and Plan: HbA1C- 6.4 cont ISS ADA diet (5) HLD (hyperlipidemia) Current Visit: Yes Status: Chronic Assessment and Plan: LDL @ 38 cont home statin (6) HTN (hypertension) Current Visit: Yes Status: Chronic Assessment and Plan: Fairly controlled blood pressure since he did not receive his morning medications resumed all his home medications continue IV hydralazine as needed (7) Thyroid disease Current Visit: Yes Status: Chronic Assessment and Plan: Resumed home Synthroid (8) DVT prophylaxis Current Visit: Yes Status: Acute Assessment and Plan: SQ heparin 5,000 units Q8HR for DVT prophylaxis. Monitor pt. for signs of bleeding. (9) Anemia Current Visit: Yes Status: Chronic Assessment and Plan: Stable hemoglobin at baseline (10) Sleep apnea in adult Current Visit: Yes Status: Chronic Assessment and Plan: use CPAP HS - Time Spent with Patient Total time spent is greater than 50% in coordination of care (as documented) at patient's floor/unit and/or counseling patient: Internal Medicine: Result - Labs CBC & Chem 7: 01/17/18 01:18 01/17/18 01:18 Labs: Short CBC 01/16/18 01/17/18 Range/Units 19:40 01:18 WBC 7.0 6.4 (4.3-11.1) K/mcL Hgb 10.6 L 10.3 L (12.9-16.9) g/dL Hct 32.6 L 32.0 L (37.5-50.1) % Plt Count 168 172 (140-400) K/mcL Neutrophils # 4.7 4.1 (1.6-8.9) K/mcL BMP 01/16/18 01/17/18 19:40 01:18 Sodium 138 139 Potassium 3.5 3.5 Chloride 103 105 Carbon Dioxide 26 26 BUN 17 18 Creatinine 0.93 1.05 Glucose 253 H 207 H Calcium 9.0 8.9 Cardiac Enzymes 01/16/18 01/17/18 01/17/18 Range/Units 19:40 01:18 07:34 Troponin I < 0.03 < 0.03 < 0.03 (< 0.04) ng/mL Liver Function 01/17/18 Range/Units 01:18 Total Bilirubin 0.2 L (0.3-1.0) mg/dL AST 20 (13-39) Units/L ALT 20 (7-52) Units/L Alkaline Phosphatase 67 (34-104) Units/L Albumin 3.9 (3.5-5.7) g/dL - ABG Interpretation ABG results: PT/INR, D-dimer PT 11.4 Seconds (9.4-12.1) 01/16/18 19:40 - Impressions Impressions Chest X-Ray 01/16/18 19:03 IMPRESSION: The lungs are without acute focal process. There is no effusion or pneumothorax. The cardiomediastinal silhouette is stable. The osseous structures are stable. IMPRESSION: No acute process. D/ / García Arellano MD / García Arellano MD Interpreting Provider: García Arellano MD Echocardiogram 01/17/18 23:32 Impressions: LVEF 60-65%. Normal LV chamber size and function. Mild concentric left ventricular hypertrophy. Mild left ventricular diastolic dysfunction. Normal right ventricular structure and function. Unable to estimate RVSP due to lack of TR jet. No significant valvular dysfunction. Left Ventricular Wall Motion: Rest Echo Findings All wall segments showed normal motion. Findings: Study Quality * Technically adequate exam. ECG Findings * Sinus bradycardia. Left Ventricle * LVEF 60-65%. * Normal LV chamber size and function. * Mild concentric left ventricular hypertrophy. * Mild left ventricular diastolic dysfunction. Right Ventricle * Normal right ventricular structure and function. Left Atrium * Severely dilated left atrium. Right Atrium * Severely dilated right atrium. Aortic Valve * Trileaflet aortic valve. * Mildly sclerotic aortic valve leaflets. * No aortic regurgitation. * No aortic stenosis. Mitral Valve * Mild mitral annular calcification * No mitral regurgitation. * No mitral stenosis. Tricuspid Valve * Normal tricuspid valve structure and function. * No tricuspid regurgitation. * Unable to estimate RVSP due to lack of TR jet. Pulmonic Valve * Pulmonic valve is not well visualized. Aorta * Normally sized aortic root. Pericardium * The pericardium appears normal. IVC * Normal IVC dimensions and inspiratory collapse. Pulmonary Artery * Pulmonary artery not well visualized. Consult Discharge Plan - Plan (1) Chest pain Qualifiers: Chest pain type: other chest pain Qualified Code(s): R07.89 - Other chest pain; R07.8 - Other chest pain (3) Asthma Qualifiers: Asthma severity: mild Asthma persistence: intermittent Asthma complication type: uncomplicated Qualified Code(s): J45.20 - Mild intermittent asthma, uncomplicated (4) Diabetes Qualifiers: Diabetes mellitus type: type 2 Diabetes mellitus fdc insulin use: unspecified buttermaker continuous churn insulin use status Diabetes mellitus complication status: with unspecified complications Qualified Code(s): E11.8 - Type 2 diabetes mellitus with unspecified complications (5) HLD (hyperlipidemia) Qualifiers: Hyperlipidemia type: pure hypercholesterolemia Qualified Code(s): E78.00 - Pure hypercholesterolemia, unspecified; E78.0 - Pure hypercholesterolemia (6) HTN (hypertension) Qualifiers: Hypertension type: essential hypertension Qualified Code(s): I10 - Essential (primary) hypertension (9) Anemia Qualifiers: Anemia type: unspecified type Qualified Code(s): D64.9 - Anemia, unspecified
--- NOTE | 2018-01-17 14:44 | Electrocardiograph Report ---
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
[2018-01-17] MEDS: hydrALAZINE 25 MG TABLET PO SCH ×2 (16:22→20:09)
[2018-01-17] MEDS: Gabapentin 300 MG CAPSULE PO SCH ×2 (16:23→20:08)
[2018-01-17] MEDS: amLODIPine 5 MG TABLET PO SCH (16:23)
[2018-01-17] MEDS ORDERED: Melatonin 3 MG TABLET PO SCH (21:00)
[2018-01-17] MEDS: Budesonide/Formoterol 160/4.5 1 PUFF INH IH SCH (22:16)
[2018-01-18 04:47] LABS: Basophils % 0.4 %; Eosinophils # 0.2 K/mcL (0.0-0.6); Eosinophils % 3.2 %; Hematocrit 31.3 % (37.5-50.1); Hemoglobin 10.2 g/dL (12.9-16.9); Immature Granulocytes % 0.3 % (0-4); Lymphocytes # 1.4 K/mcL (0.6-4.6); Lymphocytes % 19.6 %; Mean Corpuscular HGB Conc 32.6 g/dL (31.6-35.5); Mean Corpuscular Hemoglobin 26.6 pg (28.0-33.3); Mean Corpuscular Volume 81.5 fL (83.0-100.0); Mean Platelet Volume 11.3 fL (9.4-12.4); Monocytes # 0.6 K/mcL (0.0-1.3); Neutrophils # 4.8 K/mcL (1.6-8.9); Platelet Count 166 K/mcL (140-400); Red Blood Count 3.84 M/mcL (4.19-5.50); Red Cell Distribution Width 14.1 % (11.5-14.5); Segmented Neutrophils % 67.5 %
[2018-01-18 05:06] LABS: Alanine Aminotransferase 19 Units/L (7-52); Albumin 3.8 g/dL (3.5-5.7); Albumin/Globulin Ratio 1.5 (1.1-2.2); Alkaline Phosphatase 50 Units/L (34-104); Aspartate Amino Transferase 17 Units/L (13-39); BUN/Creatinine Ratio 21 (6-26); Bilirubin,Total 0.4 mg/dL (0.3-1.0); Blood Urea Nitrogen 20 mg/dL (8-23); Calcium 8.9 mg/dL (8.6-10.3); Carbon Dioxide 27 mEq/L (23-29); Chloride 106 mEq/L (98-107); Globulin 2.5 g/dL (2.4-3.5); Glucose 162 mg/dL (70-105); Osmolality,Calculated 300 (280-300); Potassium 3.1 mEq/L (3.5-5.1); Sodium 142 mEq/L (136-145); Total Protein 6.3 g/dL (6.4-8.9); eGFR For Non-African Americans > 60 (> 60)
[2018-01-18] MEDS: *HR* Heparin 5,000 UNIT/ML VIAL SQ SCH (05:51)
[2018-01-18] MEDS: Budesonide/Formoterol 160/4.5 1 PUFF INH IH SCH (07:51)
[2018-01-18] MEDS: hydrALAZINE 25 MG TABLET PO SCH (08:55)
[2018-01-18] MEDS: Gabapentin 300 MG CAPSULE PO SCH (08:55)
[2018-01-18] MEDS: amLODIPine 5 MG TABLET PO SCH (08:55)
[2018-01-18] MEDS: hydroCHLOROthiazide 25 MG TABLET PO SCH (08:56)
[2018-01-18] MEDS: Insulin LISPRO 300 UNITS/3 ML VIAL SQ SCH ×2 (08:56→12:32)
[2018-01-18] MEDS ORDERED: Loratadine 10 MG TABLET PO SCH (09:00)
[2018-01-18] MEDS ORDERED: Aspirin Enteric Coated 81 MG Tablet PO SCH (09:00)
[2018-01-18] MEDS ORDERED: Cholecalciferol (D-3) 1,000 UNIT TABLET PO SCH (09:00)
--- NOTE | 2018-01-18 11:42 | Cardiology Consult Note ---
Addendum entered and electronically signed by García Rivera DO 01/18/18 12:07: I have personally performed a face to face evaluation on this patient. I have r eviewed and agree with the care plan. History and Exam by me shows: Patient apparently seen and examined. Agree with findings, impressions, and plan as outlined below. Morbidly obese 72-year-old with multiple risk factors for CAD. Presented for chest pain, serial troponins negative. 2 day stress test demonstrated a partially reversible inferior and inferolateral defect (personally reviewed), possibly due to ischemia. EF is preserved. Discussed options, including the importance of medical therapy +/- cardiac catheterization. We discussed the risks, benefits, and alternatives to the procedure. Patient voiced understanding and declines at this time. States he will follow-up as outpatient. He is aware of the risks of undiagnosed significant CAD, including worsening symptoms and cardiac causes of . Recommended aspirin, statin, Imdur therapy. Heart rate will not tolerate a beta bill. Sublingual nitroglycerin. If symptoms return or worsen, instructed to call 911 and go to the ER. Otherwise, recommend outpatient cardiology follow- up. All questions were answered. No further inpatient cardiology recommendations at this time. Thanks, García Rivera DO, [facility] Original Note: Date of Encounter: 01/18/18 Time of Encounter: 11:40 Assessment and Plan (1) Abnormal stress test Current Visit: Yes Status: Acute CC of chest pain, troponins negative. 2 day stress test obtained--Perfusion imaging positive for bhavesh-infarct ischemia. Medium sized mixed perfusion defect mild-moderate in intensity in mid inferior and basal inferolateral segments. Gated EF 63%. TTE EF preserved with normal wall motion. ECG Sinus aye with 1st degree block. Risk factors for CAD include HTN, HLD, DM, family hx, prior tobacco abuse. Discussed LHC vs medical management. Pt is adamant that he wants to go home today. Declines LHC. R/B/A discussed. Pt prefers medical management and [facility] Continue ASA and Statin. HR will not tolerate addition of BB. Add Imdur 30mg daily. Recommend optimal BP control. Resume home ARB--Losartan 50mg BID. Anticipate sign off once seen and evaluated by Dr. Rivera. (2) Chest pain Current Visit: Yes Status: Acute As above, presented with single chest pain episode at rest, spontaneously resolv ed. No recurrence. Troponins negative x 3. 2 day stress test as above. Qualifiers: Chest pain type: other chest pain Qualified Code(s): R07.89 - Other chest pain; R07.8 - Other chest pain (3) HTN (hypertension) Current Visit: Yes Status: Chronic BP not well controlled. Add Imdur 30mg daily. On Norvasc 10mg daily, Hydralazine 100mg TID, and HCTZ 25mg daily. HR will not tolerate BB. Will resume home ARB--Losartan 50mg BID. Qualifiers: Hypertension type: essential hypertension Qualified Code(s): I10 - Essential (primary) hypertension Discussion w patient/family: The assessment and plan as outlined above was discussed with the patient and/or family members who expressed understanding and agreement. All questions were answered. Thank you for involving us in the care of your patient. Please call with any questions. I will discuss all the above with Dr. Rivera and make changes as necessary. History of Present Illness Consult date: 01/18/18 Requesting physician: Ap Pierre Consult reason: Abnormal stress test Chief complaint: chest pain History of present illness: Mr. Robert is a 72 year old male w/PMH of asthma, diabetes, HLD, HTN, GERD, thyroid disease, anemia, and depression presents from the ED w/CC of CP. Pt. states that the sx came on at rest and presented as sharp, stabbing pain in his left breast. No associated symptoms. No alleviating or aggravating factors. Spontaneously resolved within a few hours without recurrence. Reports he has had LHC years ago with no intervention he is aware of and had nuclear stress at [facility] several years ago that he believes showed an abnormality. Family hx of CAD. Troponins were negative. 2 day stress test obtained--Perfusion imaging positive for bhavesh-infarct ischemia. Medium sized mixed perfusion defect mild-moderate in intensity in mid inferior and basal inferolateral segments. Gated EF 63%. Cardiology consulted for further recs. TTE EF preserved with normal wall motion. Past Med Surg Social Fam HX - Past Medical History Medical history: asthma, diabetes, GERD, hyperlipidemia, hypertension, thyroid disease Psychiatric history: depression - Past Surgical History Surgical History: orthopedic, other Additional surgical history: steroid shots to knees - Social History Smoking Status: Former smoker Packs per day: < 1 PPD. Reports quitting in late 1960s. Smokeless Tobacco Status: No Alcohol use: none Drug use: none - Family History Mother Race: Family Member Ethnicity: Non- Living Status: Age at : 62 Cause of : CT Hx Family Cardiac Disorders: Yes (CT, CAD) Father Race: Family Member Ethnicity: Non- Living Status: Age at : 60 Cause of : Carbon monoxide poisoning Brother Race: Family Member Ethnicity: Non- Living Status: Age at : 19 Cause of : in [place] Medications and Allergies Aspirin Enteric Coated [Aspirin EC] 81 mg PO DAILY 07/10/15 [History] Budesonide/Formoterol 160/4.5 [Symbicort 160/4.5] 1 puff IH BIDR 07/10/15 [History] Cetirizine HCl [Zyrtec] 10 mg PO DAILY 07/10/15 [History] Cholecalciferol (D-3) [Vitamin D] 1,000 unit PO DAILY 07/10/15 [History] Gabapentin [Neurontin] 600 mg PO TID 07/10/15 [History] Hydralazine HCl 100 mg PO TID 07/10/15 [History] Insulin ASPART [NovoLOG] 10 unit SQ QAM 07/10/15 [History] Insulin ASPART [Novolog] 16 unit SQ BID 07/10/15 [History] Insulin Glargine,Hum.rec.anlog [Lantus Solostar] 50 unit SQ HS 07/10/15 [History] Latanoprost [Xalatan] 1 drop BOTH EYES QPM 07/10/15 [History] Losartan Potassium [Cozaar] 50 mg PO BID 07/10/15 [History] Melatonin 6 mg PO HS 07/10/15 [History] Metformin HCl [Metformin HCl ER] 2,000 mg PO QPM 07/10/15 [History] Methocarbamol [Robaxin-750] 750 mg PO TID 07/10/15 [History] Montelukast [Singulair] 10 mg PO HS 07/10/15 [History] Naproxen [Naprosyn] 500 mg PO BID 07/10/15 [History] Omeprazole [PriLOSEC] 20 mg PO DAILY 07/10/15 [History] Potassium Chloride [K-Tab ER] 20 meq PO BID 07/10/15 [History] Ropinirole HCl [Requip] 3 mg PO HS 07/10/15 [History] Sertraline [Zoloft] 200 mg PO DAILY 07/10/15 [History] Simvastatin [Zocor] 20 mg PO HS 07/10/15 [History] hydroCHLOROthiazide [Hydrochlorothiazide] 25 mg PO DAILY 07/10/15 [History] Amlodipine Besylate 10 mg PO DAILY 01/17/18 [History] Levothyroxine Sodium [Levoxyl] 250 mcg PO DAILY 01/17/18 [History] Morphine Sulfate SR (12 HR) [MS Contin] 30 mg PO Q12HR PRN 01/17/18 [History] Allergy/AdvReac Type Severity Reaction Status Date / Time citalopram [From Celexa] AdvReac aggitated Verified 07/10/15 08:14 Donepezil [From Aricept] AdvReac unknown Verified 07/10/15 08:14 per patient All Systems Review: The remainder of the systems were reviewed and are negative - Cardiovascular Cardiovascular: as per HPI, chest pain at rest Physical Examination Vital Signs, Last 4 Hours Resp Pulse Ox 01/18/18 07:51 16 97 Vital Signs Temp Pulse Resp BP Pulse Ox 01/18/18 11:39 99.3 F 55 16 144/64 97 01/18/18 07:51 16 97 01/18/18 07:33 97.8 F 53 16 174/73 97 01/18/18 03:11 98.1 F 61 16 164/72 100 01/17/18 22:51 98.3 F 50 16 160/68 98 01/17/18 22:19 97 01/17/18 18:28 97.5 F L 60 16 167/67 167 01/17/18 16:19 98.2 F 64 18 193/69 97 Intake and Output 01/17/18 01/18/18 01/18/18 23:59 07:59 15:59 Intake Total 60 / 60 Balance 60 / 60 Intake: Oral 60 / 60 Other: Weight 129.3 kg Blood Glucose* 245 193 168 Patient Weight 01/18/18 23:59 Weight 129.3 kg General: Conversant, No Apparent Distress HEENT: Atraumatic, Normocephaly, Mucus Membranes Moist Neck: No JVD, Normal carotid pulses Cardiac: Reg Rate and Rhythm, Normal S1 and S2, No Murmur Lungs: Normal Breath Sounds, No Wheeze, Rales, Rhonchi Neuro: Alert and responsive, No focal deficits noted Abdomen: Soft, Non-Tender Skin: No rashes noted on visualized skin Musculoskeletal: No Chest Wall Tenderness Extremities: No Clubbing, No Cyanosis, No Edema, Normal Pulses Results 01/18/18 03:37 01/18/18 03:37 Lab Results 01/18/18 01/18/18 03:37 03:37 WBC 7.2 Hgb 10.2 L Hct 31.3 L Plt Count 166 Sodium 142 Potassium 3.1 L Chloride 106 Carbon Dioxide 27 BUN 20 Creatinine 0.96 Glucose 162 H Calcium 8.9 Total Bilirubin 0.4 AST 17 ALT 19 Alkaline Phosphatase 50 Short CBC 01/18/18 Range/Units 03:37 WBC 7.2 (4.3-11.1) K/mcL Hgb 10.2 L (12.9-16.9) g/dL Hct 31.3 L (37.5-50.1) % Plt Count 166 (140-400) K/mcL Neutrophils # 4.8 (1.6-8.9) K/mcL BMP 01/18/18 Range/Units 03:37 Sodium 142 (136-145) mEq/L Potassium 3.1 L (3.5-5.1) mEq/L Chloride 106 (98-107) mEq/L Carbon Dioxide 27 (23-29) mEq/L BUN 20 (8-23) mg/dL Creatinine 0.96 (0.70-1.30) mg/dL Glucose 162 H (70-105) mg/dL Calcium 8.9 (8.6-10.3) mg/dL Liver Function 01/18/18 Range/Units 03:37 Total Bilirubin 0.4 (0.3-1.0) mg/dL AST 17 (13-39) Units/L ALT 19 (7-52) Units/L Alkaline Phosphatase 50 (34-104) Units/L Albumin 3.8 (3.5-5.7) g/dL Active Medications Acetaminophen (Tylenol) 650 mg PO Q6HR PRN PRN Reason: Mild Pain Stop: 07/19/18 00:25 Amlodipine Besylate (Norvasc) 10 mg PO DAILY [facility] Stop: 07/19/18 14:16 Last Admin: 01/18/18 08:55 Dose: 10 mg Aspirin (Aspirin Ec) 81 mg PO DAILY [facility] Stop: 07/20/18 09:01 Last Admin: 01/18/18 08:56 Dose: 81 mg Budesonide/Formoterol Fumarate (Symbicort) 1 puff IH BIDR [facility]; Protocol Stop: 07/19/18 22:01 Last Admin: 01/18/18 07:51 Dose: 1 puff Dextrose/Water (Dextrose 50% (Syg)) 25 ml IVP AD PRN PRN Reason: Hypoglycemia Stop: 07/18/18 23:36 Gabapentin (Neurontin) 600 mg PO TID [facility] Stop: 07/19/18 15:01 Last Admin: 01/18/18 08:55 Dose: 600 mg Glucagon (Glucagen) 1 mg IM ONCE PRN PRN Reason: Hypoglycemia Stop: 07/18/18 23:36 Glucose (Gluctose) 15 gm PO ONCE PRN PRN Reason: Hypoglycemia Stop: 07/18/18 23:36 Glucose (Gluctose) 30 gm PO ONCE PRN PRN Reason: Hypoglycemia Stop: 07/18/18 23:36 Heparin Sodium (Porcine) (Heparin) 5,000 unit SQ Q8HCO [facility] Stop: 07/19/18 06:01 Last Admin: 01/18/18 05:51 Dose: 5,000 unit Hydralazine HCl (Hydralazine) 10 mg IVP Q6HR PRN PRN Reason: Hypertension Stop: 07/19/18 00:34 Hydralazine HCl (Hydralazine) 100 mg PO TID [facility] Stop: 07/19/18 15:01 Last Admin: 01/18/18 08:55 Dose: 100 mg Hydrochlorothiazide (Hydrochlorothiazide) 25 mg PO DAILY [facility]; Protocol Stop: 07/19/18 11:46 Last Admin: 01/18/18 08:56 Dose: 25 mg Dextrose (Dextrose 5%) 1,000 mls @ 100 mls/hr IVC .Q10H PRN PRN Reason: HYPOGLYCEMIA Stop: 07/18/18 23:36 Insulin Human Lispro (Humalog) 0 units SQ TIDAC [facility]; Protocol Stop: 07/19/18 07:31 Last Admin: 01/18/18 08:56 Dose: 6 units Insulin Human Lispro (Humalog) 0 units SQ HS [facility]; Protocol Stop: 07/18/18 23:46 Last Admin: 01/17/18 20:10 Dose: 4 unit Levothyroxine Sodium (Synthroid) 250 mcg PO 0630 [facility] Stop: 07/20/18 06:31 Last Admin: 01/18/18 05:50 Dose: 250 mcg Loratadine (Claritin) 10 mg PO DAILY [facility] Stop: 07/20/18 09:01 Last Admin: 01/18/18 08:56 Dose: 10 mg Melatonin (Melatonin) 6 mg PO [facility] Stop: 07/19/18 21:01 Last Admin: 01/17/18 20:08 Dose: 6 mg Montelukast Sodium (Singulair) 10 mg PO [facility] Stop: 07/19/18 21:01 Last Admin: 01/17/18 20:08 Dose: 10 mg Morphine Sulfate (Morphine Sulfate) 10 mg PO Q8HR PRN PRN Reason: Chest Pain Stop: 07/19/18 00:22 Last Admin: 01/17/18 20:09 Dose: 10 mg Naloxone HCl (Narcan) 0.4 mg IVP Q2MIN PRN PRN Reason: SEE COMMENTS Stop: 07/19/18 00:26 Omeprazole (Prilosec) 20 mg PO DAILY [facility]; Protocol Stop: 07/20/18 09:01 Last Admin: 01/18/18 08:56 Dose: 20 mg Ropinirole HCl (Requip) 3 mg PO [facility] Stop: 07/19/18 21:01 Last Admin: 01/17/18 20:09 Dose: 3 mg Sertraline HCl (Zoloft) 200 mg PO DAILY [facility] Stop: 07/20/18 09:01 Last Admin: 01/18/18 08:55 Dose: 200 mg Simvastatin (Zocor) 20 mg PO [facility]; Protocol Stop: 07/19/18 21:01 Last Admin: 01/17/18 20:08 Dose: 20 mg Vitamin D (Vitamin D) 1,000 unit PO DAILY [facility] Stop: 07/20/18 09:01 Last Admin: 01/18/18 08:56 Dose: 1,000 unit - Imaging and Cardiology Stress Test: report reviewed Echo: report reviewed - EKG Interpretation EKG results cardiology: personally reviewed, other (12 hr tele AVG HR 51, SR, no significant pauses or arrhythmias) Consult Discharge Plan - Plan [facility]errals: [facility]Primary Care Provider[facility] -
[2018-01-18 11:43] VITALS: BP 144/64
[2018-01-18] MEDS ORDERED: Isosorbide MONOnitrate (24 HR) 30 MG TAB.ER.24H PO SCH (12:00)
--- NOTE | 2018-01-18 13:24 | Discharge Summary ---
- NOTES TO OUTPATIENT PROVIDER Notes to Outpatient Provider: Follow up with PCP in one week. Please follow up with internal review and audit compliance at the [facility]. you do need left heart catheterization for further workup regarding your abnormal stress test Orders not resulted at time of discharge: Pending orders 01/17/18 07:30 NM jeana perf SPECT multi [NM] Routine 01/19/18 04:00 Complete Blood Count [HEME] AM 0400 Comprehensive Metabolic Panel AM 0400 01/20/18 04:00 Complete Blood Count [HEME] AM 0400 Comprehensive Metabolic Panel AM 0400 Date of Encounter: 01/18/18 Time of Encounter: 13:24 - Discharge Diagnosis (1) Chest pain Priority: Primary Status: Acute Qualifiers: Chest pain type: other chest pain Qualified Code(s): R07.89 - Other chest pain; R07.8 - Other chest pain (2) Abnormal stress test Priority: Secondary Status: Acute (3) SOB (shortness of breath) Priority: Secondary Status: Acute (4) Asthma Priority: Secondary Status: Chronic Qualifiers: Asthma severity: mild Asthma persistence: intermittent Asthma complication type: uncomplicated Qualified Code(s): J45.20 - Mild intermittent asthma, uncomplicated (5) Diabetes Priority: Secondary Status: Chronic Qualifiers: Diabetes mellitus type: type 2 Diabetes mellitus oil heaterman insulin use: unspecified oil heaterman insulin use status Diabetes mellitus complication status: with unspecified complications Qualified Code(s): E11.8 - Type 2 diabetes mellitus with unspecified complications (6) HLD (hyperlipidemia) Priority: Secondary Status: Chronic Qualifiers: Hyperlipidemia type: pure hypercholesterolemia Qualified Code(s): E78.00 - Pure hypercholesterolemia, unspecified; E78.0 - Pure hypercholesterolemia (7) HTN (hypertension) Priority: Secondary Status: Chronic Qualifiers: Hypertension type: essential hypertension Qualified Code(s): I10 - Essential (primary) hypertension (8) Thyroid disease Priority: Secondary Status: Chronic (9) DVT prophylaxis Priority: Secondary Status: Acute (10) Anemia Priority: Secondary Status: Chronic Qualifiers: Anemia type: unspecified type Qualified Code(s): D64.9 - Anemia, unspecified (11) Sleep apnea in adult Priority: Secondary Status: Chronic Hospital course: Mr. Robert is a 72 year old male w/PMH of asthma, diabetes, HLD, HTN, GERD, thyroid disease, anemia, and depression presented to ED w/CC of CP. Patient stated he had a chest pain developer at rest presented as a sharp stabbing pain in his left side of chest non-radiating. No alleviating or aggravating factors. Spontaneously resolved within a few hours without recurrence. Reports he has had LHC years ago with no intervention he is aware of and had nuclear stress at [facility] several years ago that he believes showed an abnormality. Patient was admitted in the hospital and placed on cardiac cath lab radiology technologist. His serial troponin so negative. His EKG showed sinus Rashawn with the first-degree AV block. No acute ST, T changes noticed. However since patient is high risk for ACS he did go for nuclear stress test which needed 2 days due to his high BMI. His stress report came back as Perfusion imaging positive for bhavesh-infarct ischemia. Medium sized mixed perfusion defect mild-moderate in intensity in mid inferior and basal inferolateral segments. Patient was evaluated by internal review and audit compliance, offered him innocent medical management as well as + /- left heart catheterization for further evaluation regarding his abnormal stress test. Patient refuses to have LHC done here, wanted to follow up at the [facility] for further testing. He wanted to go home only now. Unable to start him on beta bill due to his bradycardia. Recommended to continue aspirin, Vincenzo and ARB, also added Imdur. Patient does aware of the risks of undiagnosed CAD including , however he still declined to have further workup done here. I did request the patient to go to the nearest ER if he gets chest pain again - Time Spent with Patient Total time spent providing and/or coordinating discharge services: - Discharge Medications Prescriptions: Isosorbide MONOnitrate (24 HR) [Imdur] 30 mg PO DAILY #30 tab.er.24h Home Medications: Aspirin Enteric Coated [Aspirin EC] 81 mg PO DAILY 07/10/15 [History] Budesonide/Formoterol 160/4.5 [Symbicort 160/4.5] 1 puff IH BIDR 07/10/15 [History] Cetirizine HCl [Zyrtec] 10 mg PO DAILY 07/10/15 [History] Cholecalciferol (D-3) [Vitamin D] 1,000 unit PO DAILY 07/10/15 [History] Gabapentin [Neurontin] 600 mg PO TID 07/10/15 [History] Hydralazine HCl 100 mg PO TID 07/10/15 [History] Insulin ASPART [NovoLOG] 10 unit SQ QAM 07/10/15 [History] Insulin ASPART [Novolog] 16 unit SQ BID 07/10/15 [History] Insulin Glargine,Hum.rec.anlog [Lantus Solostar] 50 unit SQ HS 07/10/15 [History] Latanoprost [Xalatan] 1 drop BOTH EYES QPM 07/10/15 [History] Losartan Potassium [Cozaar] 50 mg PO BID 07/10/15 [History] Melatonin 6 mg PO HS 07/10/15 [History] Metformin HCl [Metformin HCl ER] 2,000 mg PO QPM 07/10/15 [History] Methocarbamol [Robaxin-750] 750 mg PO TID 07/10/15 [History] Montelukast [Singulair] 10 mg PO HS 07/10/15 [History] Omeprazole [PriLOSEC] 20 mg PO DAILY 07/10/15 [History] Potassium Chloride [K-Tab ER] 20 meq PO BID 07/10/15 [History] Ropinirole HCl [Requip] 3 mg PO HS 07/10/15 [History] Sertraline [Zoloft] 200 mg PO DAILY 07/10/15 [History] Simvastatin [Zocor] 20 mg PO HS 07/10/15 [History] hydroCHLOROthiazide [Hydrochlorothiazide] 25 mg PO DAILY 07/10/15 [History] Amlodipine Besylate 10 mg PO DAILY 01/17/18 [History] Levothyroxine Sodium [Levoxyl] 250 mcg PO DAILY 01/17/18 [History] Morphine Sulfate SR (12 HR) [MS Contin] 30 mg PO Q12HR PRN 01/17/18 [History] Isosorbide MONOnitrate (24 HR) [Imdur] 30 mg PO DAILY #30 tab.er.24h 01/18/18 [Rx] Allergies/Adverse Reactions: Allergy/AdvReac Type Severity Reaction Status Date / Time citalopram [From Celexa] AdvReac aggitated Verified 07/10/15 08:14 Donepezil [From Aricept] AdvReac unknown Verified 07/10/15 08:14 per patient Date of admission: 01/16/18 21:35 [facility] physician: [facility] Consults: 01/17/18 00:30 Consult to Taker Down [CONS] Routine Reason for SW Consult: Please assess patient for possible home needs for post-discharge planning. 01/18/18 11:05 Consult to Cardiology [CONS] Routine Comment: Consulting Provider: Peggy Gomez Reason for Consult: abnormal stress test Time Notified: 11:05 Call Completed: Yes - Constitutional Vitals: Temp Pulse Resp BP Pulse Ox 99.3 F 55 16 144/64 97 01/18/18 11:39 01/18/18 11:39 01/18/18 11:39 01/18/18 11:39 01/18/18 11:39 General appearance: Present: cooperative, A&O X 3, morbidly obese, pleasant, answers questions appropriately Exam: Gen: Alert, awake, Oriented to time,place and person Chest: Diminished breath sounds B/L, No wheezing, No crackles, No rales Heart: S1S2+ RRR No murmurs Abd: Soft, NT, BS +, No organomegaly Ext: No edema, pulses are palpable, No calf tenderness Neuro : Benign findings Skin: No rash. - Patient Status Disposition: Home, Self-Care Condition: Good Overall status at discharge: patient is back to baseline - Discharge Instructions Follow Up With: [facility] [Primary Care Provider[facility] - Forms: ED Satisfaction Letter - Diet and Activity Activity: increase activity as tolerated Diet: low salt diet
== END 2018-01-18 14:10 | disposition home or self-care (01) ==
LOC: EMEROOARM 18:32 → 3BNU 18:32 → SUATTDRO 21:35 → 3BNU 21:57
PROVIDERS: ADMIT Internal Medicine; ATTEND Family Medicine

== ENCOUNTER 2020-02-20 15:54 | Observation (INO) ==
[2020-02-20] MEDS ORDERED: Furosemide 40 MG/4 ML VIAL IVP ONE (16:28)
[2020-02-20 16:41] LABS: Basophils # 0.1 K/mcL (0.0-0.2); Basophils % 0.6 %; Eosinophils # 0.1 K/mcL (0.0-0.6); Eosinophils % 1.2 %; Hematocrit 40.9 % (37.5-50.1); Hemoglobin 13.2 g/dL (12.9-16.9); Immature Granulocytes % 0.6 % (0-4); Lymphocytes # 0.9 K/mcL (0.6-4.6); Lymphocytes % 8.8 %; Mean Corpuscular HGB Conc 32.3 g/dL (31.6-35.5); Mean Corpuscular Hemoglobin 29.4 pg (28.0-33.3); Mean Corpuscular Volume 91.1 fL (83.0-100.0); Mean Platelet Volume 10.7 fL (9.4-12.4); Monocytes # 0.7 K/mcL (0.0-1.3); Monocytes % 7.6 %; Neutrophils # 7.9 K/mcL (1.6-8.9); Platelet Count 167 K/mcL (140-400); Red Blood Count 4.49 M/mcL (4.19-5.50); Red Cell Distribution Width 13.2 % (11.5-14.5); Segmented Neutrophils % 81.2 %; White Blood Count 9.7 K/mcL (4.3-11.1)
[2020-02-20 16:45] LABS: Prothrombin Time 11.2 Seconds (9.4-12.1)
[2020-02-20 16:48] LABS: Activated Partial Thrombo Time 30.3 Seconds (26.0-36.0)
[2020-02-20 17:03] LABS: BUN/Creatinine Ratio 16 (6-26); Blood Urea Nitrogen 17 mg/dL (8-23); Calcium 9.5 mg/dL (8.6-10.3); Carbon Dioxide 25 mEq/L (23-29); Chloride 103 mEq/L (98-107); Glucose 135 mg/dL (70-105); Osmolality,Calculated 292 (280-300); Potassium 3.5 mEq/L (3.5-5.1); Sodium 139 mEq/L (136-145); Troponin I < 0.03 ng/mL (< 0.04); eGFR For African Americans > 60 (> 60); eGFR For Non-African Americans > 60 (> 60)
[2020-02-20] MEDS ORDERED: Naloxone 0.4 MG/ML INJ IVP PRN (17:50)
[2020-02-20] MEDS ORDERED: Ondansetron 4 MG/2 ML VIAL IVP PRN (17:50)
[2020-02-20] MEDS ORDERED: Dextrose Gel 15 GM/37.5 ML TUBE PO PRN ×2 (17:52)
[2020-02-20] MEDS ORDERED: *HR* Dextrose 50 % in Water (Vial) 50 ML VIAL IVP PRN (17:52)
[2020-02-20] MEDS ORDERED: D5% in Water 1,000 ML IVC PRN (17:52)
[2020-02-20] MEDS ORDERED: Morphine Sulfate 2 MG/ML SYRINGE IVP ONE (18:28)
[2020-02-20] MEDS ORDERED: Perflutren Lipid Microsphere 1.3 ML in 0.9 % Sodium Chloride 8.7 ML IVP PRN (18:29)
[2020-02-20] MEDS ORDERED: Metoprolol XL (24 HR) Succ 25 MG TAB.ER.24H PO SCH (18:30)
[2020-02-20] MEDS: hydrALAZINE 25 MG TABLET PO SCH (21:35)
[2020-02-20] MEDS: Furosemide 20 MG/2 ML VIAL IVP SCH (21:36)
[2020-02-20] MEDS: Melatonin 3 MG TABLET PO SCH (21:36)
[2020-02-20] MEDS: Insulin DETEMIR 100 UNIT/ML X5UNITS SUBQ SCH (21:37)
[2020-02-20] MEDS: *HR* Heparin 5,000 UNIT/ML VIAL SQ SCH (21:37)
[2020-02-21] MEDS: Latanoprost 2.5 ML BOTTLE BOTH EYES SCH ×2 (01:14→18:56)
[2020-02-21] MEDS: *HR* Heparin 5,000 UNIT/ML VIAL SQ SCH (05:10)
[2020-02-21 06:09] LABS: Basophils % 0.5 %; Eosinophils # 0.1 K/mcL (0.0-0.6); Eosinophils % 0.8 %; Hematocrit 37.4 % (37.5-50.1); Immature Granulocytes % 0.3 % (0-4); Lymphocytes % 12.1 %; Mean Corpuscular HGB Conc 32.1 g/dL (31.6-35.5); Mean Corpuscular Hemoglobin 28.4 pg (28.0-33.3); Mean Corpuscular Volume 88.6 fL (83.0-100.0); Mean Platelet Volume 10.8 fL (9.4-12.4); Monocytes # 0.9 K/mcL (0.0-1.3); Monocytes % 10.3 %; Neutrophils # 6.6 K/mcL (1.6-8.9); Platelet Count 155 K/mcL (140-400); Red Blood Count 4.22 M/mcL (4.19-5.50); Red Cell Distribution Width 13.3 % (11.5-14.5); White Blood Count 8.6 K/mcL (4.3-11.1)
[2020-02-21 06:33] LABS: Alanine Aminotransferase 21 Units/L (7-52); Albumin/Globulin Ratio 1.4 (1.1-2.2); Alkaline Phosphatase 56 Units/L (34-104); Aspartate Amino Transferase 16 Units/L (13-39); BUN/Creatinine Ratio 17 (6-26); Bilirubin,Total 0.7 mg/dL (0.3-1.0); Blood Urea Nitrogen 18 mg/dL (8-23); Calcium 9.2 mg/dL (8.6-10.3); Carbon Dioxide 28 mEq/L (23-29); Chloride 103 mEq/L (98-107); Chol/HDL Ratio 3.1 (0-4.9); Cholesterol 107 mg/dL (< 200); Globulin 2.8 g/dL (2.4-3.5); Glucose 196 mg/dL (70-105); HDL Cholesterol 34 mg/dL (40-59); LDL Cholesterol,Calculated 55 mg/dL (< 100); Magnesium 1.9 mg/dL (1.6-2.6); Osmolality,Calculated 299 (280-300); Potassium 3.1 mEq/L (3.5-5.1); Sodium 141 mEq/L (136-145); Total Protein 6.8 g/dL (6.4-8.9); Triglycerides 91 mg/dL (< 150); Troponin I 0.03 ng/mL (< 0.04); eGFR For African Americans > 60 (> 60); eGFR For Non-African Americans > 60 (> 60)
[2020-02-21] MEDS ORDERED: Isovue-370 500 ML BOTTLE IVP ONE (07:37)
[2020-02-21] MEDS ORDERED: Morphine Sulfate ER (12 HR) 30 MG TABLET.ER PO PRN (07:40)
[2020-02-21] MEDS ORDERED: methocarbamoL 750 MG TABLET PO PRN (07:40)
[2020-02-21] MEDS ORDERED: rOPINIRole 1 MG TABLET PO SCH (09:00)
[2020-02-21] MEDS ORDERED: levoFLOXacin 750 MG/150 ML 750 MG/150 ML BAG IVPB SCH (09:00)
[2020-02-21] MEDS ORDERED: Isosorbide MONOnitrate (24 HR) 30 MG TAB.ER.24H PO SCH (09:00)
[2020-02-21] MEDS ORDERED: *HR* Heparin 5,000 UNIT/ML VIAL IVP PRN ×2 (09:57)
[2020-02-21] MEDS ORDERED: *HR* Heparin 5,000 UNIT/ML VIAL IVP ONE (09:57)
[2020-02-21] MEDS: hydrALAZINE 25 MG TABLET PO SCH ×3 (11:21→21:19)
[2020-02-21] MEDS: Aspirin Enteric Coated 81 MG Tablet PO SCH (11:21)
[2020-02-21] MEDS: Cholecalciferol (D-3) 1,000 UNIT (25MCG) TABLET PO SCH (11:22)
[2020-02-21] MEDS: Isosorbide MONOnitrate (24 HR) 30 MG TAB.ER.24H PO SCH (11:22)
[2020-02-21] MEDS: Spironolactone 25 MG TABLET PO SCH (11:22)
[2020-02-21] MEDS: Gabapentin 300 MG CAPSULE PO SCH ×3 (11:22→21:19)
[2020-02-21] MEDS: Loratadine 10 MG TABLET PO SCH (11:22)
[2020-02-21] MEDS: amLODIPine 5 MG TABLET PO SCH (11:23)
[2020-02-21] MEDS: Furosemide 20 MG/2 ML VIAL IVP SCH ×2 (11:23→21:20)
[2020-02-21] MEDS ORDERED: Ibuprofen 800 MG TABLET PO ONE (11:26)
[2020-02-21 11:38] LABS: Hematocrit 39.1 % (37.5-50.1); Hemoglobin 13.1 g/dL (12.9-16.9); Mean Corpuscular HGB Conc 33.5 g/dL (31.6-35.5); Mean Corpuscular Hemoglobin 29.4 pg (28.0-33.3); Mean Corpuscular Volume 87.7 fL (83.0-100.0); Mean Platelet Volume 10.7 fL (9.4-12.4); Platelet Count 167 K/mcL (140-400); Red Blood Count 4.46 M/mcL (4.19-5.50); Red Cell Distribution Width 13.1 % (11.5-14.5); White Blood Count 8.8 K/mcL (4.3-11.1)
[2020-02-21] MEDS: Insulin LISPRO 300 UNITS/3 ML VIAL SUBQ SCH ×3 (11:38→18:51)
[2020-02-21] MEDS: carvediloL 6.25 MG TABLET PO SCH ×2 (11:40→18:56)
[2020-02-21] MEDS: Heparin 25,000UNIT/250ML 1/2NS 25,000 UNIT/250 ML IV.SOLN IVC SCH (11:42)
[2020-02-21 11:45] LABS: Heparin anti-factor XA UFH < 0.04 IU/mL (0.30-0.70); INR 1.2; Prothrombin Time 13.5 Seconds (9.4-12.1)
[2020-02-21] MEDS: Ranolazine 500 MG TAB.ER.12H PO SCH ×2 (12:05→21:19)
[2020-02-21] MEDS ORDERED: Metoprolol XL (24 HR) Succ 25 MG TAB.ER.24H PO SCH (18:00)
[2020-02-21] MEDS ORDERED: Mirtazapine 15 MG TABLET PO SCH (21:00)
[2020-02-21] MEDS: Melatonin 3 MG TABLET PO SCH (21:19)
[2020-02-21] MEDS: Insulin DETEMIR 100 UNIT/ML X5UNITS SUBQ SCH (21:20)
[2020-02-22 01:31] LABS: Basophils % 0.3 %; Eosinophils # 0.2 K/mcL (0.0-0.6); Eosinophils % 2.4 %; Hemoglobin 11.9 g/dL (12.9-16.9); Immature Granulocytes % 0.3 % (0-4); Lymphocytes # 1.9 K/mcL (0.6-4.6); Lymphocytes % 21.6 %; Mean Corpuscular HGB Conc 33.1 g/dL (31.6-35.5); Mean Corpuscular Hemoglobin 29.8 pg (28.0-33.3); Mean Corpuscular Volume 90.2 fL (83.0-100.0); Mean Platelet Volume 11.2 fL (9.4-12.4); Monocytes # 0.7 K/mcL (0.0-1.3); Monocytes % 8.3 %; Neutrophils # 5.9 K/mcL (1.6-8.9); Platelet Count 155 K/mcL (140-400); Red Blood Count 3.99 M/mcL (4.19-5.50); Red Cell Distribution Width 13.3 % (11.5-14.5); Segmented Neutrophils % 67.1 %; White Blood Count 8.8 K/mcL (4.3-11.1)
[2020-02-22 01:36] LABS: BUN/Creatinine Ratio 21 (6-26); Blood Urea Nitrogen 23 mg/dL (8-23); Carbon Dioxide 27 mEq/L (23-29); Chloride 101 mEq/L (98-107); Glucose 191 mg/dL (70-105); Magnesium 1.8 mg/dL (1.6-2.6); Osmolality,Calculated 297 (280-300); Phosphorous 3.2 mg/dL (2.7-4.5); Potassium 3.2 mEq/L (3.5-5.1); Sodium 139 mEq/L (136-145); eGFR For African Americans > 60 (> 60); eGFR For Non-African Americans > 60 (> 60)
[2020-02-22] MEDS ORDERED: rOPINIRole 1 MG TABLET PO ONE (01:55)
[2020-02-22] MEDS: Heparin 25,000UNIT/250ML 1/2NS 25,000 UNIT/250 ML IV.SOLN IVC SCH (03:44)
[2020-02-22] MEDS ORDERED: Apixaban 5 MG TABLET PO SCH (09:00)
[2020-02-22] MEDS: amLODIPine 5 MG TABLET PO SCH (09:30)
[2020-02-22] MEDS: Spironolactone 25 MG TABLET PO SCH (09:30)
[2020-02-22] MEDS: carvediloL 6.25 MG TABLET PO SCH (09:31)
[2020-02-22] MEDS: Ranolazine 500 MG TAB.ER.12H PO SCH (09:31)
[2020-02-22] MEDS: Loratadine 10 MG TABLET PO SCH (09:31)
[2020-02-22] MEDS: Gabapentin 300 MG CAPSULE PO SCH (09:31)
[2020-02-22] MEDS: Cholecalciferol (D-3) 1,000 UNIT (25MCG) TABLET PO SCH (09:31)
[2020-02-22] MEDS: hydrALAZINE 25 MG TABLET PO SCH (09:31)
[2020-02-22] MEDS: Isosorbide MONOnitrate (24 HR) 30 MG TAB.ER.24H PO SCH (09:31)
[2020-02-22] MEDS: Aspirin Enteric Coated 81 MG Tablet PO SCH (09:31)
[2020-02-22] MEDS: Insulin LISPRO 300 UNITS/3 ML VIAL SUBQ SCH ×2 (09:32→12:08)
[2020-02-22] MEDS: Furosemide 20 MG/2 ML VIAL IVP SCH (09:32)
[2020-02-22 11:36] VITALS: BP 156/60
[2020-02-22] MEDS ORDERED: rOPINIRole 1 MG TABLET PO SCH (21:00)
== END 2020-02-22 15:10 | disposition home or self-care (01) ==
LOC: 2ANU 15:54 → EMEROOARM 15:54 → SUATTDRO 18:33 → 2ANU 20:31
PROVIDERS: ADMIT Internal Medicine; ATTEND Internal Medicine

== ENCOUNTER 2020-05-08 13:44 | Observation (INO) ==
[2020-05-08] MEDS ORDERED: Aspirin 81 MG TAB.CHEW PO ONE (14:04)
[2020-05-08 14:18] LABS: Basophils # 0.1 K/mcL (0.0-0.2); Basophils % 0.7 %; Eosinophils # 0.2 K/mcL (0.0-0.6); Eosinophils % 3.1 %; Hematocrit 38.4 % (37.5-50.1); Hemoglobin 12.1 g/dL (12.9-16.9); Immature Granulocytes % 0.3 % (0-4); Lymphocytes # 1.4 K/mcL (0.6-4.6); Lymphocytes % 18.2 %; Mean Corpuscular HGB Conc 31.5 g/dL (31.6-35.5); Mean Corpuscular Hemoglobin 28.5 pg (28.0-33.3); Mean Corpuscular Volume 90.6 fL (83.0-100.0); Mean Platelet Volume 10.7 fL (9.4-12.4); Monocytes # 0.6 K/mcL (0.0-1.3); Monocytes % 7.4 %; Neutrophils # 5.3 K/mcL (1.6-8.9); Platelet Count 163 K/mcL (140-400); Red Blood Count 4.24 M/mcL (4.19-5.50); Red Cell Distribution Width 14.6 % (11.5-14.5); Segmented Neutrophils % 70.3 %; White Blood Count 7.5 K/mcL (4.3-11.1)
[2020-05-08 14:29] LABS: INR 1.2; Prothrombin Time 13.9 Seconds (9.4-12.1)
[2020-05-08 14:31] LABS: Activated Partial Thrombo Time 37.8 Seconds (26.0-36.0)
[2020-05-08 14:40] LABS: Alanine Aminotransferase 18 Units/L (7-52); Albumin 4.3 g/dL (3.5-5.7); Albumin/Globulin Ratio 1.6 (1.1-2.2); Alkaline Phosphatase 71 Units/L (34-104); Aspartate Amino Transferase 17 Units/L (13-39); BUN/Creatinine Ratio 17 (6-26); Bilirubin,Direct 0.1 mg/dL (0.0-0.2); Bilirubin,Indirect 0.3 mg/dL (0.0-1.0); Bilirubin,Total 0.4 mg/dL (0.3-1.0); Blood Urea Nitrogen 18 mg/dL (8-23); Calcium 9.2 mg/dL (8.6-10.3); Carbon Dioxide 28 mEq/L (23-29); Chloride 105 mEq/L (98-107); Globulin 2.7 g/dL (2.4-3.5); Glucose 224 mg/dL (70-105); Lipase 25 Units/L (11-82); Osmolality,Calculated 299 (280-300); Potassium 3.8 mEq/L (3.5-5.1); Sodium 140 mEq/L (136-145); Troponin I < 0.03 ng/mL (< 0.04); eGFR For African Americans > 60 (> 60); eGFR For Non-African Americans > 60 (> 60)
[2020-05-08] MEDS ORDERED: Naloxone 0.4 MG/ML INJ IVP PRN (16:47)
[2020-05-08] MEDS ORDERED: D5% in Water 1,000 ML IVC PRN (16:56)
[2020-05-08] MEDS ORDERED: Dextrose Gel 15 GM/37.5 ML TUBE PO PRN ×2 (16:56)
[2020-05-08] MEDS ORDERED: *HR* Dextrose 50 % in Water (Vial) 50 ML VIAL IVP PRN (16:56)
[2020-05-08] MEDS: Apixaban 5 MG TABLET PO SCH (20:05)
[2020-05-08] MEDS: rOPINIRole 1 MG TABLET PO SCH (22:03)
[2020-05-09 03:17] LABS: Hematocrit 37.2 % (37.5-50.1); Hemoglobin 11.7 g/dL (12.9-16.9); Mean Corpuscular HGB Conc 31.5 g/dL (31.6-35.5); Mean Corpuscular Hemoglobin 28.4 pg (28.0-33.3); Mean Corpuscular Volume 90.3 fL (83.0-100.0); Mean Platelet Volume 11.6 fL (9.4-12.4); Platelet Count 152 K/mcL (140-400); Red Blood Count 4.12 M/mcL (4.19-5.50); Red Cell Distribution Width 14.5 % (11.5-14.5); White Blood Count 7.5 K/mcL (4.3-11.1)
[2020-05-09 03:44] LABS: BUN/Creatinine Ratio 20 (6-26); Blood Urea Nitrogen 18 mg/dL (8-23); Calcium 8.9 mg/dL (8.6-10.3); Carbon Dioxide 26 mEq/L (23-29); Chloride 104 mEq/L (98-107); Glucose 131 mg/dL (70-105); Osmolality,Calculated 296 (280-300); Potassium 3.9 mEq/L (3.5-5.1); Sodium 141 mEq/L (136-145); Troponin I < 0.03 ng/mL (< 0.04); eGFR For African Americans > 60 (> 60); eGFR For Non-African Americans > 60 (> 60)
[2020-05-09] MEDS: Insulin LISPRO 300 UNITS/3 ML VIAL SUBQ SCH ×3 (08:17→16:52)
[2020-05-09] MEDS: Apixaban 5 MG TABLET PO SCH ×2 (08:25→19:26)
[2020-05-09] MEDS ORDERED: Perflutren Lipid Microsphere 1.3 ML in 0.9 % Sodium Chloride 8.7 ML IVP PRN (08:45)
[2020-05-09] MEDS: hydroCHLOROthiazide 25 MG TABLET PO SCH (10:46)
[2020-05-09] MEDS: Ranolazine 500 MG TAB.ER.12H PO SCH ×2 (10:46→19:26)
[2020-05-09] MEDS ORDERED: methocarbamoL 750 MG TABLET PO PRN (11:11)
[2020-05-09] MEDS ORDERED: Artificial Tears SOLN 15 ML BOTTLE BOTH EYES PRN (11:40)
[2020-05-09] MEDS: Gabapentin 300 MG CAPSULE PO SCH ×2 (16:56→19:26)
[2020-05-09] MEDS: Morphine Sulfate ER (12 HR) 30 MG TABLET.ER PO SCH (16:56)
[2020-05-09] MEDS: carvediloL 6.25 MG TABLET PO SCH (16:57)
[2020-05-09] MEDS ORDERED: Loratadine 10 MG TABLET PO SCH (18:00)
[2020-05-09] MEDS: rOPINIRole 1 MG TABLET PO SCH (19:27)
[2020-05-09] MEDS ORDERED: Melatonin 3 MG TABLET PO SCH (21:00)
[2020-05-09] MEDS ORDERED: Latanoprost 2.5 ML BOTTLE BOTH EYES SCH (21:00)
[2020-05-09] MEDS ORDERED: Mirtazapine 15 MG TABLET PO SCH (21:00)
[2020-05-10 05:58] LABS: Hematocrit 38.1 % (37.5-50.1); Hemoglobin 12.5 g/dL (12.9-16.9); Mean Corpuscular HGB Conc 32.8 g/dL (31.6-35.5); Mean Corpuscular Hemoglobin 29.1 pg (28.0-33.3); Mean Corpuscular Volume 88.6 fL (83.0-100.0); Platelet Count 141 K/mcL (140-400); Red Cell Distribution Width 14.8 % (11.5-14.5); White Blood Count 7.5 K/mcL (4.3-11.1)
[2020-05-10] MEDS: Morphine Sulfate ER (12 HR) 30 MG TABLET.ER PO SCH (06:00)
[2020-05-10] MEDS: carvediloL 6.25 MG TABLET PO SCH (08:37)
[2020-05-10] MEDS: hydroCHLOROthiazide 25 MG TABLET PO SCH (08:38)
[2020-05-10] MEDS: Gabapentin 300 MG CAPSULE PO SCH (08:38)
[2020-05-10] MEDS: Apixaban 5 MG TABLET PO SCH (08:38)
[2020-05-10] MEDS: Ranolazine 500 MG TAB.ER.12H PO SCH (08:38)
[2020-05-10] MEDS: Insulin LISPRO 300 UNITS/3 ML VIAL SUBQ SCH ×2 (08:38→11:53)
[2020-05-10] MEDS ORDERED: Isosorbide MONOnitrate (24 HR) 60 MG TAB.ER.24H PO SCH (09:00)
[2020-05-10] MEDS ORDERED: HYDROCHLOROTHIAZIDE 12.5 MG PO SCH (09:00)
[2020-05-10] MEDS ORDERED: Spironolactone 12.5 MG TABLET PO SCH (09:00)
[2020-05-10] MEDS ORDERED: Aspirin Enteric Coated 81 MG Tablet PO SCH (09:00)
[2020-05-10] MEDS ORDERED: amLODIPine 5 MG TABLET PO SCH (09:00)
[2020-05-10 11:02] VITALS: BP 131/66
== END 2020-05-10 14:40 | disposition home or self-care (01) ==
LOC: EMEROOARM 13:44 → 3BNU 13:44 → SUATTDRO 16:57 → 3BNU 17:26
PROVIDERS: ADMIT General Practice; ATTEND Nurse Practitioner